=== PATIENT | male | born 1985 | race Caucasian/White ===

== ENCOUNTER 2020-02-18 18:08 | Emergency (ER) | payer OTHER ==
[~2020-02-18] VITALS: Ht 200.7 cm; Wt 104.3 kg
[2020-02-18] MEDS ORDERED: 8 HOUR PAIN RE650 M1 PO (21:05)
== END 2020-02-18 21:36 | disposition home or self-care (01) ==
LOC: ER 18:08 → EDBD 18:37 → ER 21:36
DX: B34.9 Viral infection, unspecified (principal); Z20.828 Contact with and (suspected) exposure to other viral communicable diseases